=== PATIENT | female | born 1970 | race Caucasian/White ===

== ENCOUNTER 2016-06-17 18:49 | Emergency (ER) | payer OTHER | END 2016-06-17 20:40 | disposition home or self-care (01) | LOC: ER 18:49 | DX: J06.9 Acute upper respiratory infection, unspecified (principal); R05 Cough; J32.9 Chronic sinusitis, unspecified; E03.9 Hypothyroidism, unspecified; M54.9 Dorsalgia, unspecified; Z90.49 Acquired absence of other specified parts of digestive tract; Z98.890 Other specified postprocedural states; Z79.899 Other long term (current) drug therapy | CPT/HCPCS: 99282; J8597 ==